=== PATIENT | male | born 1950 | race Caucasian/White ===

== ENCOUNTER 2021-06-29 07:32 | Day surgery (SDC) | payer MEDICARE ==
[~2021-06-29] VITALS: Ht 182.9 cm; Wt 113.0 kg
[~2021-06-29 07:32] MED LIST: CYCLOPENTOLATE 1% OPHTH SOLN 2 ML BTL OD SCH; DUOVISC (0.50ML VISCOAT/0.85ML PROVISC) OPHTH KIT As Ordered ONE; FLURBIPROFEN 0.03% OPHTH SOLN 2.5 ML OD SCH; FOLTTAB9 PO; IRON27TA2 PO; LIDOCAINE 1% MDV 20ML VIAL SQ PRN; LIDOCAINE 1% SDV 5ML VIAL As Ordered ONE; LR 1,000 ML IV ONE; LR 1,000 ML IV SCH; MAXITROL OPHTH SUSP 5 ML As Ordered ONE; PANT40TA29; PARO20TA3; PHENYLEPHRINE 2.5% OPHTH SOL 2ML OD SCH; TETRACAINE 0.5% OPHTH SOLN 4ML OD SCH
[2021-06-29] MEDS ORDERED: fentaNYL 100 MCG/2 ML INJECTION (J3010) As Ordered ONE (10:50)
[2021-06-29] MEDS ORDERED: MIDAZOLAM INJ 2MG/2ML VIAL (J2250 PER 1MG) As Ordered ONE (10:50)
[2021-06-29 12:30] VITALS: BP 145/71
--- NOTE | 2021-06-29 16:10 | ROOPDOC ---
[facility] Report Of Operation Report of Operation PREPROCEDURE DIAGNOSES: Cataract right eye. POSTPROCEDURE DIAGNOSES: Same. PROCEDURE PERFORMED: Cataract extraction with intraocular lens implantation right eye. SURGEON: Arcadio Murphy MD [employer]: None ANESTHESIA: local with intravenous sedation ESTIMATED BLOOD LOSS: None. COMPLICATIONS: None. SPECIMENS REMOVED: None DESCRIPTION OF PROCEDURE: The patient was brought to the operating room and prepped and draped in the usual sterile fashion and an eyelid speculum was inserted in the right eye. A paracentesis was made and the anterior chamber was inflated with non-preserved lidocaine. This was followed by injection of Viscoat. A groove was made in the temporal clear cornea which was tunneled forward with the crescent blade and the anterior chamber was entered with a 2.75 keratome. The cystotome was used to make an incision in the center of the capsule and a continuous curvilinear capsulorhexis was created. The lens was hydrodissected until it was found to rotate freely within the capsular bag. Phacoemulsification was then used to remove the lens in its entirety. Irrigation and aspiration were used to remove residual cortical material. The anterior chamber and capsular bag were reinflated with Provisc and a 19.5 diopter SN60AT lens was injected into the capsular bag using the Winston injector. The lens was dialed into place using the Sinskey hook. Irrigation and aspiration were used to remove residual viscoelastic. The wound was stromally hydrated until was found to be watertight and the eye was in an appropriate pressure. The eyelid speculum was removed from the eye and Maxitrol drops were placed over the right eye. The patient was transferred to the recovery room in stable condition and will follow up tomorrow. The total CDE was 14.38 ARCADIO MURPHY MD Jun 29, 2021 16:10
== END 2021-06-29 12:40 | disposition home or self-care (01) ==
LOC: M SDC 07:32
PROVIDERS: ATTEND Ophthalmology
DX: H25.11 Age-related nuclear cataract, right eye (principal); D64.9 Anemia, unspecified; F41.9 Anxiety disorder, unspecified; Z79.899 Other long term (current) drug therapy; Z91.041 Radiographic dye allergy status; Z91.010 Allergy to peanuts
CPT/HCPCS: 66984; J2250; J3010; V2632